=== PATIENT | male | born 1990 | race Caucasian/White ===

== ENCOUNTER 2016-11-03 15:53 | Emergency (ER) | payer OTHER ==
[~2016-11-03] VITALS: Ht 177.8 cm; Wt 68.2 kg
[2016-11-03 16:03] VITALS: BP 157/96; PULSE 97; TEMP 98.1
[2016-11-03 17:09] LABS: PH 6 (5-8); SQUAMOUS EPITHELIAL None Seen /hpf; URINE APPEARANCE Clear; URINE BACTERIA None Seen /hpf; URINE BILIRUBIN Negative (NEGATIVE); URINE BLOOD Negative (NEGATIVE); URINE COLOR Yellow; URINE GLUCOSE Negative (NEGATIVE); URINE KETONE Negative (NEGATIVE); URINE RBC 0-2 /hpf; URINE UROBILINOGEN Negative (NEGATIVE); URINE WBC 0-2 /hpf
[2016-11-03 18:39] LABS: CHLAMYDIA/TRACH by PCR Male NOT DETECTED; Neisseria Gon by PCR Male NOT DETECTED
== END 2016-11-03 17:41 | disposition home or self-care (01) ==
LOC: COL.ER 15:53
PROVIDERS: Family Medicine
DX: N41.0 Acute prostatitis (principal)

== ENCOUNTER → 2016-11-18 | Outpatient (CLI) | payer OTHER | LOC: COL.RAD 11:50 | DX: N50.89 Other specified disorders of the male genital organs (principal) ==

== ENCOUNTER → 2017-03-31 | Outpatient (CLI) | payer OTHER | LOC: COL.RAD 13:24 | DX: J41.1 Mucopurulent chronic bronchitis (principal) ==

== ENCOUNTER → 2017-06-23 | Outpatient (CLI) | payer SELFPAY | LOC: COL.RAD 12:27 | DX: M54.2 Cervicalgia (principal); V49.9XXA Car occupant (driver) (passenger) injured in unspecified traffic accident, initial encounter ==

== ENCOUNTER 2018-11-11 07:12 | Day surgery (SDC) | payer BC ==
[~2018-11-11] VITALS: Ht 177.8 cm; Wt 76.8 kg
[2018-11-11] MEDS ORDERED: PRIL40 PO (07:36)
[2018-11-11] MEDS ORDERED: CLARITIN 1010 MG/TAB PO (07:37)
[2018-11-11] MEDS ORDERED: PEPCID AC 10MG10 MG PO (07:37)
[2018-11-11 07:59] VITALS: BP 144/92; PULSE 70; TEMP 97.3
[2018-11-11 09:05] VITALS: BP 149/94; PULSE 70; TEMP 97.4
--- NOTE | 2018-11-11 09:05 | NUR ---
Patient brought back to [facility], ambulated to chair without difficulty. Alert and oriented. Vital signs stable. States he would like juice and a muffin. Tolerating well. All safety maintained, will continue to monitor.
[2018-11-11 09:20] VITALS: BP 136/92; PULSE 71
--- NOTE | 2018-11-11 09:20 | NUR ---
Patient tolerating food and drink without difficulty. Vital signs stable. Will continue to monitor.
[2018-11-11 09:35] VITALS: BP 129/89; PULSE 62
--- NOTE | 2018-11-11 09:35 | NUR ---
Patient complaining of mild nausea. Emesis bag provided. Vital signs stable. Will continue to monitor.
[2018-11-11 09:47] VITALS: BP 128/68; PULSE 54
--- NOTE | 2018-11-11 10:17 | NUR ---
Patient brought down to lobby via wheelchair. Patient picked up by girlfriend to be driven home.
== END 2018-11-11 10:17 | disposition home or self-care (01) ==
LOC: SDCO 07:12
DX: K21.9 Gastro-esophageal reflux disease without esophagitis (principal); F32.9 Major depressive disorder, single episode, unspecified; F41.9 Anxiety disorder, unspecified
CPT/HCPCS: J2250; J2405; J3010; J7030

== ENCOUNTER 2022-02-19 19:21 | Emergency (ER) | payer SELFPAY ==
[~2022-02-19] VITALS: Ht 177.8 cm; Wt 77.3 kg
[~2022-02-19 19:21] MED LIST: CLARITIN 1010 MG/TAB PO; PEPCID AC 10MG10 MG PO; PRIL40 PO
[2022-02-19 19:22] VITALS: TEMP 98.5
[2022-02-19] MEDS ORDERED: FLEXERIL 1010 MG/TAB PO (21:19)
[2022-02-19] MEDS ORDERED: NORCO 325 MG-51 TAB PO (21:19)
[2022-02-19 21:34] VITALS: BP 113/82; PULSE 98
== END 2022-02-19 21:34 | disposition home or self-care (01) ==
LOC: COL.ER 19:21
DX: S39.012A Strain of muscle, fascia and tendon of lower back, initial encounter (principal); X50.1XXA Overexertion from prolonged static or awkward postures, initial encounter
CPT/HCPCS: J1100; J1885; J2360